=== PATIENT | female | born 2000 | race Caucasian/White ===

== ENCOUNTER 2019-07-08 12:17 | Emergency (ER) | payer BC, SELFPAY ==
[2019-07-08 12:18] VITALS: BP 123/78; PULSE 116; RESP 18; TEMP 36.6; O2SAT 92
[2019-07-08 12:30] VITALS: TEMP 36.8
--- NOTE | 2019-07-08 12:34 | RAD_ITS ---
STUDY: X-RAY CHEST REASON FOR EXAM: Female, 18 years old. Cough and chest tightness for 2 weeks TECHNIQUE: PA and lateral views of the chest. COMPARISON: None. FINDINGS: Parenchymal opacity in the lingula is best seen on the lateral view. There is no demonstrated pleural abnormality. Normal size heart. Normal mediastinum and shirlene. Normal visualized pulmonary arteries. Normal visualized aortic arch and descending thoracic aorta. Normal visualized thoracic spine. Normal visualized ribs, clavicles, and shoulders. There is no demonstrated abnormality of the visualized soft tissue structures of the upper abdomen. RAD/Chest PA and Lateral IMPRESSION: Lingular opacity suggesting pneumonia. Electronically Signed: Luis Antonio Spears MD ([place]) at 13:21 EDT , Service support ,
--- NOTE | 2019-07-08 12:35 | ED.DCSUM_ITS ---
History of Present Illness Chief Complaint: Cough Informant: Patient Onset: Weeks - 2-1/2 weeks Context: Gradual Onset Timing: Waxes and wanes Current Severity: Moderate Maximum Severity: Moderate Narrative: Patient has a history of asthma. Over the last 2-1/2 weeks she has had persistent cough. She states now she feels more restriction in her lungs and having more trouble breathing. She did not use her albuterol this morning. She denies fever. She has been bringing up yellow-colored sputum. Past Medical History - Allergies and Home Meds Allergies/Adverse Reactions: Allergies apple Allergy (Verified 07/08/19 12:20) Anaphylaxis banana Allergy (Verified 07/08/19 12:20) Itching Primary Care Physician: [facility] Doctor,Out of [NON-STAFF] - Prior records reviewed: Yes Past Medical History: - - Reviewed Lives: - - College student Smoking Status: Never smoker Review of Systems General: Denies: Chills, Fever Eyes: Denies: Visual changes - bilaterally ENT: Denies: Bilateral ear pain Cardiovascular: Denies: Chest pain Respiratory: Reports: Dyspnea, Cough, Sputum Gastrointestinal: Denies: Abdominal pain, Nausea, Vomiting, Diarrhea Genitourinary: Denies: Dysuria Musculoskeletal: Denies: Extremity Pain Skin: Denies: Rash Neurological: Denies: Headache Hematologic: Denies: Easy bruising Allergy: Denies: Uticaria Physical Exam Vital Signs/Narrative: Vital Signs Temp Pulse Resp BP Pulse Ox 07/08/19 12:30 98.3 F 07/08/19 12:18 97.8 F 116 H 18 123/78 H 92 Inital Vital Signs reviewed: Yes General: Well nourished, Well developed Head: Normocephalic ENT: Moist mucous membranes Neck: Supple Cardiovascular: Regular rate, Regular rhythm Respiratory: No distress, Wheezing, Decreased Air Movement, - - Diminished air movement with expiratory wheezing noted. Abdomen: Soft, Nontender Extremities: Nontender, No edema Skin: Normal color, No rash Neurological: Alert, Oriented x3 Psychological: Normal affect Diagnostic/Tx/Re-eval Impressions Chest X-Ray 07/08/19 12:34 IMPRESSION: Lingular opacity suggesting pneumonia. Electronically Signed: Luis Antonio Spears MD ([place]) at 13:21 EDT , Service support , 07/08/19 12:34 Chest PA and Lateral [RAD] Stat - Medical Decision Making Patient was given prednisone and DuoNeb treatment here. On repeat evaluation she does have improved air movement. O2 sats are 95 to 97%. Chest x-ray does show evidence of lingular pneumonia. She will be treated with a course of Levaquin, first dose given here. She will be given prescriptions for Levaquin and prednisone. She has albuterol in her dorm room that she will use. She is encouraged to return for worsening symptoms. ED Disposition - Plan for ED Patient: Disposition: Home or Assisted Living Diagnosis: Pneumonia, Asthma exacerbation Instructions: PNEUMONIA (Adult), ASTHMA, Acute (Adult) Prescriptions: Prednisone [Deltasone] 40 mg PO DAILY #10 tablet Levofloxacin [Levaquin] 750 mg PO DAILY #4 tablet Referrals: [facility] Doctor,Out of [NON-STAFF] - [facility] [GROUP OF PHYSICIANS] - 2 Days
[2019-07-08] MEDS: predniSONE 20 MG Tablet 60 MG PO (12:39)
[2019-07-08] MEDS: Ipratropium/Albuterol Sulfate 3 ML AMPUL.NEB INHALATION (12:45)
[2019-07-08 12:46] VITALS: PULSE 85; RESP 16
[2019-07-08] MEDS: levoFLOXacin 750 MG Tablet PO (14:04)
[2019-07-08 14:06] VITALS: PULSE 89; RESP 18; O2SAT 95
== END 2019-07-08 14:07 | disposition home or self-care (01) ==
PROVIDERS: Emergency Provider Emergency Medicine
DX: J45.901 Unspecified asthma with (acute) exacerbation (principal); J18.9 Pneumonia, unspecified organism
CPT/HCPCS: 71046; 94640; 99283